=== PATIENT | female | born 1945 | race Caucasian/White ===

== ENCOUNTER → 2016-09-20 | Outpatient (CLI) | payer OTHER ==
[2016-09-20 10:20] LABS: BASO # 0.2 K/mm3 (0.0-0.2); BASO % 1.3 % (0.0-1.0); EOS # 0.2 K/mm3 (0.0-0.50); EOS % 1.4 % (0.0-3.0); LARGE UNSTAINED CELL # 0.2 K/mm3 (0.0-0.4); LARGE UNSTAINED CELL % 1.4 % (0.0-4.0); LYMPH # 2.3 K/mm3 (1.5-4.5); LYMPH % 13.3 % (24.0-44.0); MEAN CORPUSCULAR HEMOGLOBIN 30.3 pg (27.0-33.0); MEAN CORPUSCULAR HGB CONC 32.8 g/dl (32.0-36.5); MEAN CORPUSCULAR VOLUME 92.3 fl (80.0-96.0); MONO # 0.7 K/mm3 (0.0-0.8); MONO % 4.6 % (0.0-5.0); NEUTROPHILS # 12.5 K/mm3 (1.8-7.7); PLATELET COUNT, AUTOMATED 111 k/mm3 (150-450); RED CELL DISTRIBUTION WIDTH 13.5 % (11.5-14.5)
[2016-09-20 10:38] LABS: ALBUMIN 3.3 GM/DL (3.2-5.2); ALBUMIN/GLOBULIN RATIO 1.06 (1.00-1.93); ALKALINE PHOSPHATASE 101 U/L (45-117); ALT/SGPT 22 U/L (12-78); ANION GAP 8 MEQ/L (8-16); AST/SGOT 11 U/L (15-37); BILIRUBIN,TOTAL 0.5 MG/DL (0.2-1.0); BLOOD UREA NITROGEN 12 MG/DL (7-18); CALCIUM LEVEL 8.5 MG/DL (8.8-10.2); CARBON DIOXIDE LEVEL 28 MEQ/L (21-32); CHLORIDE LEVEL 107 MEQ/L (98-107); CREATININE FOR GFR 0.79 MG/DL (0.55-1.02); GLOMERULAR FILTRATION RATE > 60.0 (>45); GLUCOSE, FASTING 142 MG/DL (80-110); POTASSIUM SERUM 4.2 MEQ/L (3.5-5.1); SODIUM LEVEL 143 MEQ/L (136-145); TOTAL PROTEIN 6.4 GM/DL (6.4-8.2)
[2016-09-20 10:48] LABS: VITAMIN B12 LEVEL 1490 PG/ML (247-911)
[2016-09-21 10:21] LABS: PRETREATED FOLATE FOR RBCFOL 17.5 NG/ML
== END ==
LOC: M WUC 09:05
PROVIDERS: ATTEND Family Medicine
DX: E53.8 Deficiency of other specified B group vitamins (principal); E11.9 Type 2 diabetes mellitus without complications

== ENCOUNTER → 2017-02-02 | Outpatient (CLI) | payer OTHER ==
[2017-02-02 09:31] LABS: MEAN CORPUSCULAR HGB CONC 33.6 g/dl (32.0-36.5); MEAN CORPUSCULAR VOLUME 92.2 fl (80.0-96.0); RED CELL DISTRIBUTION WIDTH 13.3 % (11.5-14.5); WHITE BLOOD COUNT 13.6 K/mm3 (4.0-10.0)
[2017-02-02 09:40] LABS: CHOLESTEROL LEVEL 163 MG/DL (<200); TOTAL PROTEIN 6.5 GM/DL (6.4-8.2); TRIGLYCERIDES LEVEL 124 MG/DL (<150)
[2017-02-03 13:47] LABS: ALBUMIN 3.61 GM/DL (3.29-5.55); ALBUMIN % 55.5 % (55.8-66.1)
== END ==
LOC: M WUC 08:07
PROVIDERS: ATTEND Family Medicine
DX: D72.829 Elevated white blood cell count, unspecified (principal); E11.9 Type 2 diabetes mellitus without complications; E55.9 Vitamin D deficiency, unspecified

== ENCOUNTER → 2017-04-04 | Outpatient (CLI) | payer OTHER ==
[~2017-04-04] VITALS: Ht 154.9 cm; Wt 79.4 kg
[~2017-04-04] MED LIST: ADV500INH INH; ALBU17IN INH; ASPI1TAB PO; CALC600T31 PO; CITA20TA4 PO; DRIS50002 PO; JANU100T PO; LIDOCAINE 2% INJ 100 MG/5 ML SDV (FOR ANES.) As Ordered ONE; LISI10TA4 PO; METF10004 PO; MONT10TA2 PO; NS 1,000 ML IV ONE; OMEP40CA2 PO; PRAV40TA2 PO; PROPOFOL 200 MG/20 ML VIAL As Ordered ONE; VITA100072 PO
--- NOTE | 2017-04-04 07:56 | ROOR ---
Patient Name: Maria Esther Harris Procedure Date: 04/04/2017 7:27 AM Date of : 1945 Age: 71 [facility] Gender: Female Note Status: Finalized Procedure: Colonoscopy Indications: Screening patient at increased risk: Family history of 1st-degree relative with colorectal cancer at age 60 years (or older), Incidental - Positive fecal immunochemical test Providers: Mikey HUNTER MD Referring MD: Tristian Byrd MD Requesting Provider: Medicines: Monitored Anesthesia Care Complications: No immediate complications. Procedure: Pre-Anesthesia Assessment: - The heart rate, respiratory rate, oxygen saturations, blood pressure, adequacy of pulmonary ventilation, and response to care were monitored throughout the procedure. The Colonoscope was introduced through the anus and advanced to the cecum, identified by appendiceal orifice and ileocecal valve. The colonoscopy was performed without difficulty. The patient tolerated the procedure well. The quality of the bowel preparation was good. Findings: The perianal exam findings include skin tags. Five sessile polyps were found in the sigmoid colon. The polyps were 3 to 4 mm in size. These polyps were removed with a cold snare. Resection and retrieval were complete. A 7 mm polyp was found in the hepatic flexure. The polyp was sessile. The polyp was removed with a cold snare. Resection and retrieval were complete. The exam was otherwise without abnormality on direct and retroflexion views. Impression: - Perianal skin tags found on perianal exam. - Five 3 to 4 mm polyps in the sigmoid colon, removed with a cold snare. Resected and retrieved. - One 7 mm polyp at the hepatic flexure, removed with a cold snare. Resected and retrieved. - The examination was otherwise normal on direct and retroflexion views. Recommendation: - Repeat colonoscopy in 5 years for surveillance. Mikey Hunter MD Mikey HUNTER MD 04/04/2017 7:56:27 AM This report has been signed electronically. Number of Addenda: 0 Note Initiated On: 04/04/2017 7:27 AM Estimated Blood Loss: Estimated blood loss: none.
[2017-04-04 08:15] VITALS: BP 117/56
== END | disposition home or self-care (01) ==
LOC: M OPP 06:59
PROVIDERS: ATTEND Internal Medicine Gastroenterology
DX: R19.5 Other fecal abnormalities (principal); D12.5 Benign neoplasm of sigmoid colon; D12.3 Benign neoplasm of transverse colon; K64.4 Residual hemorrhoidal skin tags; I10 Essential (primary) hypertension; E78.5 Hyperlipidemia, unspecified; E11.9 Type 2 diabetes mellitus without complications; R12 Heartburn; R06.02 Shortness of breath; M19.90 Unspecified osteoarthritis, unspecified site; K21.9 Gastro-esophageal reflux disease without esophagitis; F32.9 Major depressive disorder, single episode, unspecified; J45.909 Unspecified asthma, uncomplicated; J44.9 Chronic obstructive pulmonary disease, unspecified; R06.83 Snoring; F17.210 Nicotine dependence, cigarettes, uncomplicated; Z79.82 Long term (current) use of aspirin; Z79.899 Other long term (current) drug therapy; Z80.0 Family history of malignant neoplasm of digestive organs

== ENCOUNTER → 2017-05-30 | Outpatient (CLI) | payer OTHER ==
[~2017-05-30] MED LIST changes: -LIDOCAINE 2% INJ 100 MG/5 ML SDV (FOR ANES.) As Ordered ONE; -NS 1,000 ML IV ONE; -PROPOFOL 200 MG/20 ML VIAL As Ordered ONE
--- NOTE | 2017-05-30 11:24 | REPMRS ---
Patient History The patient states she has not had a clinical breast exam in over a year. Patient is postmenopausal. Family history of colorectal cancer in father at age 50 or over and breast cancer in sister at age 71. Digital Woman Screen Mammo: May 30, 2017 - Exam #: [id number] Bilateral CC and MLO view(s) were taken. Technologist: Yue Lopez, Technologist Prior study comparison: June 16, 2016, digital woman screen mammo performed at [facility]. December 04, 2014, digital woman screen mammo performed at [facility]. November 26, 2013, digital woman screen mammo performed at [facility]. FINDINGS: There are scattered fibroglandular densities. There has been no change in the appearance of the mammogram from the prior studies. There is a mild amount of scattered fibroglandular density which is fairly symmetric. There is no interval development of dominant mass, architectural distortion, or clustered microcalcification suggestive of malignancy. ASSESSMENT: BI-RADS/ACR category 1 mammogram. Negative. Recommendation Routine screening mammogram in 1 year (for women over age 40). This mammogram was interpreted with the aid of an FDA-approved computer-aided dectection system. Electronically Signed By: Stevie Roblero MD 05/30/17 [id number]
== END ==
LOC: M WHC 09:50
PROVIDERS: ATTEND Family Medicine
DX: Z12.31 Encounter for screening mammogram for malignant neoplasm of breast (principal); Z78.0 Asymptomatic menopausal state

== ENCOUNTER → 2017-06-15 | Outpatient (CLI) | payer OTHER ==
[2017-06-15 10:01] LABS: MEAN CORPUSCULAR HEMOGLOBIN 29.8 pg (27.0-33.0); MEAN CORPUSCULAR HGB CONC 34.1 g/dl (32.0-36.5); MEAN CORPUSCULAR VOLUME 87.3 fl (80.0-96.0); RED CELL DISTRIBUTION WIDTH 13.3 % (11.5-14.5); WHITE BLOOD COUNT 15.2 10^3/uL (4.0-10.0)
[2017-06-15 10:19] LABS: BASOPHILS 1 % (0-4); EOSINOPHILS 1 % (0-5)
[2017-06-15 10:26] LABS: ALBUMIN 3.4 GM/DL (3.2-5.2); ALKALINE PHOSPHATASE 101 U/L (45-117); ALT/SGPT 20 U/L (12-78); ANION GAP 4 MEQ/L (8-16); AST/SGOT 14 U/L (15-37); BILIRUBIN,TOTAL 0.4 MG/DL (0.2-1.0); BLOOD UREA NITROGEN 14 MG/DL (7-18); CALCIUM LEVEL 9.2 MG/DL (8.8-10.2); CARBON DIOXIDE LEVEL 31 MEQ/L (21-32); CHLORIDE LEVEL 105 MEQ/L (98-107); CREATININE FOR GFR 0.68 MG/DL (0.55-1.02); GLOMERULAR FILTRATION RATE > 60.0 (>39); GLUCOSE, FASTING 120 MG/DL (83-110); POTASSIUM SERUM 4.3 MEQ/L (3.5-5.1); SODIUM LEVEL 140 MEQ/L (136-145); TOTAL PROTEIN 6.5 GM/DL (6.4-8.2)
== END ==
LOC: M WUC 08:39
PROVIDERS: ATTEND Family Medicine
DX: D72.829 Elevated white blood cell count, unspecified (principal); Z80.0 Family history of malignant neoplasm of digestive organs

== ENCOUNTER 2017-09-28 12:33 | Emergency (ER) | payer OTHER ==
[2017-09-28] MEDS: IPRATROPIUM 0.5MG/ALBUTEROL 2.5MG INH SOL UD 3ML (DUONEB)(J7620) NEB (13:29)
== END 2017-09-28 16:13 | disposition home or self-care (01) ==
LOC: M ED 12:33
DX: C34.90 Malignant neoplasm of unspecified part of unspecified bronchus or lung (principal); R06.2 Wheezing; E11.9 Type 2 diabetes mellitus without complications; I10 Essential (primary) hypertension; J44.9 Chronic obstructive pulmonary disease, unspecified; F17.200 Nicotine dependence, unspecified, uncomplicated; Z79.82 Long term (current) use of aspirin; Z79.899 Other long term (current) drug therapy; Z79.84 Long term (current) use of oral hypoglycemic drugs
CPT/HCPCS: 71046

== ENCOUNTER → 2017-10-07 | Outpatient (CLI) | payer OTHER | LOC: M WUC 09:56 | DX: R91.8 Other nonspecific abnormal finding of lung field (principal) | CPT/HCPCS: 71046 ==

== ENCOUNTER → 2017-10-18 | Outpatient (CLI) | payer OTHER ==
[2017-10-18 13:50] LABS: BASO # 0.1 10^3/uL (0.0-0.2); BASO % 0.4 % (0.0-1.0); EOS % 0.2 % (0.0-3.0); HEMATOCRIT 45.3 % (36.0-47.0); HEMOGLOBIN 15.2 g/dl (12.0-16.0); IMMATURE GRANULOCYTE # 0.4 10^3/uL (0-0); IMMATURE GRANULOCYTE % 1.9 % (0-0); LYMPH # 2.4 10^3/uL (1.5-4.5); LYMPH % 12.1 % (24.0-44.0); MEAN CORPUSCULAR HEMOGLOBIN 29.3 pg (27.0-33.0); MEAN CORPUSCULAR HGB CONC 33.6 g/dl (32.0-36.5); MEAN CORPUSCULAR VOLUME 87.3 fl (80.0-96.0); MONO # 0.9 10^3/uL (0.0-0.8); MONO % 4.3 % (0.0-5.0); NEUTROPHILS # 15.9 10^3/uL (1.8-7.7); NEUTROPHILS % 81.1 % (36.0-66.0); PLATELET COUNT, AUTOMATED 130 10^3/uL (150-450); RED BLOOD COUNT 5.19 10^6/uL (4.00-5.40); RED CELL DISTRIBUTION WIDTH 13.9 % (11.5-14.5); WHITE BLOOD COUNT 19.6 10^3/uL (4.0-10.0)
[2017-10-18 13:58] LABS: ESTIMATED AVERAGE GLUCOSE 160 MG/DL (60-110); HEMOGLOBIN A1c 7.2 %
[2017-10-18 13:59] LABS: TOTAL 25(OH) VITAMIN D 52.6 NG/ML (30.0-100.0)
[2017-10-18 14:00] LABS: PTH INTACT 42.6 PG/ML (14.0-72.0); VITAMIN B12 LEVEL 1569 PG/ML (247-911)
[2017-10-18 14:05] LABS: ALBUMIN 3.4 GM/DL (3.2-5.2); ALBUMIN/GLOBULIN RATIO 1.21 (1.00-1.93); ALKALINE PHOSPHATASE 79 U/L (45-117); ALT/SGPT 24 U/L (12-78); ANION GAP 7 MEQ/L (8-16); AST/SGOT 9 U/L (7-37); BILIRUBIN,TOTAL 0.4 MG/DL (0.2-1.0); BLOOD UREA NITROGEN 22 MG/DL (7-18); CALCIUM LEVEL 8.7 MG/DL (8.8-10.2); CARBON DIOXIDE LEVEL 30 MEQ/L (21-32); CHLORIDE LEVEL 102 MEQ/L (98-107); CHOLESTEROL LEVEL 176 MG/DL (<200); CHOLESTEROL RISK RATIO 2.885 (<5); CREATININE FOR GFR 0.87 MG/DL (0.55-1.30); FREE T4 0.79 NG/DL (0.76-1.46); GLOMERULAR FILTRATION RATE > 60.0 (>39); GLUCOSE, FASTING 147 MG/DL (70-100); HDL CHOLESTEROL 61 MG/DL (>40); LDL CHOLESTEROL 81.6 MG/DL (<100); NON-HDL-C 115 MG/DL; POTASSIUM SERUM 4.8 MEQ/L (3.5-5.1); SODIUM LEVEL 139 MEQ/L (136-145); THYROID STIMULATING HORMONE 0.585 uIU/ML (0.358-3.740); TOTAL PROTEIN 6.2 GM/DL (6.4-8.2); TRIGLYCERIDES LEVEL 167 MG/DL (<150)
== END ==
LOC: M WUC 08:39
DX: E53.8 Deficiency of other specified B group vitamins (principal); E55.9 Vitamin D deficiency, unspecified; E11.9 Type 2 diabetes mellitus without complications; E78.5 Hyperlipidemia, unspecified
CPT/HCPCS: 84443

== ENCOUNTER → 2017-12-02 | Outpatient (CLI) | payer OTHER ==
[2017-12-02 12:41] LABS: ALBUMIN 3.2 GM/DL (3.2-5.2); ALBUMIN/GLOBULIN RATIO 1.07 (1.00-1.93); ALKALINE PHOSPHATASE 107 U/L (45-117); ALT/SGPT 16 U/L (12-78); ANION GAP 10 MEQ/L (8-16); AST/SGOT 10 U/L (7-37); BILIRUBIN,TOTAL 0.3 MG/DL (0.2-1.0); BLOOD UREA NITROGEN 15 MG/DL (7-18); CALCIUM LEVEL 8.6 MG/DL (8.8-10.2); CARBON DIOXIDE LEVEL 25 MEQ/L (21-32); CHLORIDE LEVEL 106 MEQ/L (98-107); CREATININE FOR GFR 0.67 MG/DL (0.55-1.30); GLOMERULAR FILTRATION RATE > 60.0 (>39); GLUCOSE, FASTING 132 MG/DL (70-100); POTASSIUM SERUM 4.1 MEQ/L (3.5-5.1); SODIUM LEVEL 141 MEQ/L (136-145); TOTAL PROTEIN 6.2 GM/DL (6.4-8.2)
== END ==
LOC: M WUC 08:58
DX: I10 Essential (primary) hypertension (principal)
CPT/HCPCS: 80053

== ENCOUNTER → 2017-12-05 | Outpatient (CLI) | payer OTHER ==
[~2017-12-05] MED LIST changes: -ADV500INH INH; -ALBU17IN INH; -ASPI1TAB PO; -CALC600T31 PO; -CITA20TA4 PO; -DRIS50002 PO; +ISOVUE-370 76% 100ML VIAL (Q9967) As Ordered; -JANU100T PO; -LISI10TA4 PO; -METF10004 PO; -MONT10TA2 PO; -OMEP40CA2 PO; -PRAV40TA2 PO; -VITA100072 PO
== END ==
LOC: M RAD 15:36
DX: R91.8 Other nonspecific abnormal finding of lung field (principal)
CPT/HCPCS: Q9967

== ENCOUNTER → 2017-12-08 | Outpatient (REF) | payer OTHER ==
[2017-12-08 12:00] LABS: BASO # 0.1 10^3/uL (0.0-0.2); BASO % 0.9 % (0.0-1.0); EOS # 0.2 10^3/uL (0.0-0.50); EOS % 1.3 % (0.0-3.0); HEMATOCRIT 42.7 % (36.0-47.0); HEMOGLOBIN 14.1 g/dl (12.0-16.0); IMMATURE GRANULOCYTE % 0.7 % (0-3.0); LYMPH # 2.3 10^3/uL (1.5-4.5); LYMPH % 14.9 % (24.0-44.0); MEAN CORPUSCULAR HEMOGLOBIN 29.3 pg (27.0-33.0); MEAN CORPUSCULAR VOLUME 88.6 fl (80.0-96.0); MONO # 0.8 10^3/uL (0.0-0.8); MONO % 5.1 % (0.0-5.0); NEUTROPHILS # 11.8 10^3/uL (1.8-7.7); NEUTROPHILS % 77.1 % (36.0-66.0); PLATELET COUNT, AUTOMATED 239 10^3/uL (150-450); RED BLOOD COUNT 4.82 10^6/uL (4.00-5.40); RED CELL DISTRIBUTION WIDTH 13.9 % (11.5-14.5); WHITE BLOOD COUNT 15.3 10^3/uL (4.0-10.0)
[2017-12-08 12:17] LABS: INR 1.11; PROTHROMBIN TIME 14.4 SECONDS (12.4-14.5)
[2017-12-08 12:18] LABS: PARTIAL THROMBOPLASTIN TIME 30.5 SECONDS (26.8-37.9)
== END ==
LOC: M SFHCPLAZ 08:50
DX: R91.8 Other nonspecific abnormal finding of lung field (principal); D69.6 Thrombocytopenia, unspecified
CPT/HCPCS: 85610

== ENCOUNTER → 2017-12-15 | Outpatient (CLI) | payer OTHER ==
[~2017-12-15] MED LIST changes: +ACETAMINOPHEN 325 MG TAB As Ordered; -ISOVUE-370 76% 100ML VIAL (Q9967) As Ordered; +LIDOCAINE 1% MDV 20ML VIAL As Ordered
== END ==
LOC: M RADPRO 12:26
DX: R91.8 Other nonspecific abnormal finding of lung field (principal); C34.90 Malignant neoplasm of unspecified part of unspecified bronchus or lung; Z79.82 Long term (current) use of aspirin; Z79.899 Other long term (current) drug therapy; Z79.84 Long term (current) use of oral hypoglycemic drugs
CPT/HCPCS: 32405

== ENCOUNTER → 2018-01-03 | Outpatient (CLI) | payer OTHER ==
[~2018-01-03] MED LIST changes: -ACETAMINOPHEN 325 MG TAB As Ordered
== END ==
LOC: M RADPRO 10:51
DX: C79.89 Secondary malignant neoplasm of other specified sites (principal); E11.9 Type 2 diabetes mellitus without complications; I10 Essential (primary) hypertension; F32.9 Major depressive disorder, single episode, unspecified; E78.00 Pure hypercholesterolemia, unspecified; K21.9 Gastro-esophageal reflux disease without esophagitis; Z79.82 Long term (current) use of aspirin; Z79.84 Long term (current) use of oral hypoglycemic drugs; Z79.899 Other long term (current) drug therapy
CPT/HCPCS: 49180

== ENCOUNTER → 2018-01-09 | Outpatient (CLI) | payer OTHER | LOC: M WUC 10:21 | DX: R91.8 Other nonspecific abnormal finding of lung field (principal); R59.0 Localized enlarged lymph nodes; J01.11 Acute recurrent frontal sinusitis | CPT/HCPCS: 71046; G0463 ==

== ENCOUNTER → 2018-01-20 | Outpatient (REF) | payer OTHER ==
[2018-01-20 14:21] LABS: INR 1.21; PROTHROMBIN TIME 15.6 SECONDS (12.4-14.5)
[2018-01-20 14:22] LABS: PARTIAL THROMBOPLASTIN TIME 33.7 SECONDS (26.8-37.9)
[2018-01-20 14:31] LABS: CARCINOEMBRYONIC ANTIGEN 7.2 NG/ML (<2.5)
[2018-01-20 15:00] LABS: CA 125 161.1 U/ML (<30.2)
== END ==
LOC: M LAB REF 13:35
DX: C56.9 Malignant neoplasm of unspecified ovary (principal); C78.00 Secondary malignant neoplasm of unspecified lung; C79.89 Secondary malignant neoplasm of other specified sites; C78.1 Secondary malignant neoplasm of mediastinum
CPT/HCPCS: 82378

== ENCOUNTER → 2018-01-24 | Outpatient (CLI) | payer OTHER | LOC: M PLARAD 14:17 | DX: C79.31 Secondary malignant neoplasm of brain (principal) | CPT/HCPCS: 78815 ==

== ENCOUNTER → 2018-01-30 | Outpatient (CLI) | payer OTHER ==
[~2018-01-30] MED LIST changes: -LIDOCAINE 1% MDV 20ML VIAL As Ordered; +PROHANCE 279.3MG/ML 15ML VIAL (A9576) As Ordered
== END ==
LOC: M RAD 08:42
DX: C80.1 Malignant (primary) neoplasm, unspecified (principal); G31.9 Degenerative disease of nervous system, unspecified; I67.81 Acute cerebrovascular insufficiency
CPT/HCPCS: A9576

== ENCOUNTER → 2018-02-15 | Outpatient (REF) | payer OTHER ==
[2018-02-16 11:16] LABS: THYROID STIMULATING HORMONE 0.744 uIU/ML (0.358-3.740)
== END ==
LOC: M LAB REF 13:00
DX: Z79.899 Other long term (current) drug therapy (principal); C80.1 Malignant (primary) neoplasm, unspecified; C78.1 Secondary malignant neoplasm of mediastinum; C78.00 Secondary malignant neoplasm of unspecified lung; C49.4 Malignant neoplasm of connective and soft tissue of abdomen
CPT/HCPCS: 84443

== ENCOUNTER → 2018-02-23 | Outpatient (CLI) | payer OTHER ==
[~2018-02-23] MED LIST changes: +GASTROGRAFIN SOLUTION 30ML (Q9963) As Ordered; +ISOVUE-370 76% 100ML VIAL (Q9967) As Ordered; -PROHANCE 279.3MG/ML 15ML VIAL (A9576) As Ordered
== END ==
LOC: M RAD 12:57
DX: R10.32 Left lower quadrant pain (principal); C34.90 Malignant neoplasm of unspecified part of unspecified bronchus or lung
CPT/HCPCS: Q9963

== ENCOUNTER 2018-03-02 10:33 | Day surgery (SDC) | payer OTHER ==
[2018-03-02] MEDS ORDERED: NS 1,000 ML IV (12:30)
[2018-03-02] MEDS ORDERED: PROPOFOL 200 MG/20 ML VIAL As Ordered ×2 (12:47→12:55)
== END 2018-03-02 14:04 | disposition home or self-care (01) ==
LOC: M OPP 10:33
DX: R93.3 Abnormal findings on diagnostic imaging of other parts of digestive tract (principal); K57.30 Diverticulosis of large intestine without perforation or abscess without bleeding; K56.690 Other partial intestinal obstruction; R07.89 Other chest pain; R06.02 Shortness of breath; I10 Essential (primary) hypertension; E78.5 Hyperlipidemia, unspecified; R19.07 Generalized intra-abdominal and pelvic swelling, mass and lump; C34.90 Malignant neoplasm of unspecified part of unspecified bronchus or lung; Z92.21 Personal history of antineoplastic chemotherapy; E11.9 Type 2 diabetes mellitus without complications; K21.9 Gastro-esophageal reflux disease without esophagitis; M19.90 Unspecified osteoarthritis, unspecified site; F32.9 Major depressive disorder, single episode, unspecified; J45.909 Unspecified asthma, uncomplicated; J44.9 Chronic obstructive pulmonary disease, unspecified; R06.83 Snoring; F17.210 Nicotine dependence, cigarettes, uncomplicated; Z79.82 Long term (current) use of aspirin; Z79.899 Other long term (current) drug therapy; Z79.84 Long term (current) use of oral hypoglycemic drugs; Z80.0 Family history of malignant neoplasm of digestive organs
CPT/HCPCS: 45380

== ENCOUNTER → 2018-03-09 | Outpatient (CLI) | payer OTHER ==
[~2018-03-09] MED LIST changes: -GASTROGRAFIN SOLUTION 30ML (Q9963) As Ordered
== END ==
LOC: M RAD 16:01
DX: C80.1 Malignant (primary) neoplasm, unspecified (principal); C78.01 Secondary malignant neoplasm of right lung
CPT/HCPCS: Q9967

== ENCOUNTER 2018-03-13 09:32 | Inpatient (IN) | payer OTHER ==
[2018-03-13 10:16] LABS: BASO # 0.1 10^3/uL (0.0-0.2); BASO % 0.6 % (0.0-1.0); EOS # 0.1 10^3/uL (0.0-0.50); HEMATOCRIT 38.3 % (36.0-47.0); HEMOGLOBIN 12.9 g/dl (12.0-15.5); IMMATURE GRANULOCYTE % 0.4 % (0-3.0); LYMPH # 1.9 10^3/uL (1.5-4.5); LYMPH % 15.1 % (24.0-44.0); MEAN CORPUSCULAR HEMOGLOBIN 26.7 pg (27.0-33.0); MEAN CORPUSCULAR HGB CONC 33.7 g/dl (32.0-36.5); MEAN CORPUSCULAR VOLUME 79.1 fl (80.0-96.0); MONO # 0.8 10^3/uL (0.0-0.8); MONO % 6.4 % (0.0-5.0); NEUTROPHILS # 9.9 10^3/uL (1.8-7.7); NEUTROPHILS % 76.5 % (36.0-66.0); PLATELET COUNT, AUTOMATED 277 10^3/uL (150-450); RED BLOOD COUNT 4.84 10^6/uL (4.00-5.40); RED CELL DISTRIBUTION WIDTH 14.3 % (11.5-14.5); WHITE BLOOD COUNT 12.9 10^3/uL (4.0-10.0)
[2018-03-13 10:27] LABS: PROTHROMBIN TIME 15.4 SECONDS (12.4-14.5)
[2018-03-13 10:51] LABS: ALBUMIN 2.5 GM/DL (3.2-5.2); ALBUMIN/GLOBULIN RATIO 0.63 (1.00-1.93); ALKALINE PHOSPHATASE 93 U/L (45-117); ALT/SGPT 10 U/L (12-78); ANION GAP 9 MEQ/L (8-16); AST/SGOT 8 U/L (7-37); BILIRUBIN,DIRECT 0.1 MG/DL (0.0-0.2); BILIRUBIN,TOTAL 0.5 MG/DL (0.2-1.0); BLOOD UREA NITROGEN 9 MG/DL (7-18); CALCIUM LEVEL 8.3 MG/DL (8.8-10.2); CARBON DIOXIDE LEVEL 26 MEQ/L (21-32); CHLORIDE LEVEL 106 MEQ/L (98-107); CPK CREATINE PHOSPHOKINASE 14 U/L (26-192); CREATININE FOR GFR 0.64 MG/DL (0.55-1.30); GLOMERULAR FILTRATION RATE > 60.0 (>39); GLUCOSE, FASTING 150 MG/DL (70-100); LIPASE 116 U/L (73-393); POTASSIUM SERUM 3.7 MEQ/L (3.5-5.1); SODIUM LEVEL 141 MEQ/L (136-145); TOTAL PROTEIN 6.5 GM/DL (6.4-8.2); TROPONIN I < 0.02 NG/ML (< 0.10)
[2018-03-13 10:52] LABS: CK-MB VALUE MASS < 1.0 NG/ML (<3.6); MB/CK RELATIVE INDEX 7.14 (< OR =4)
[2018-03-13] MEDS: ASPIRIN 81 MG CHEW TABLET PO (10:55)
[2018-03-13] MEDS ORDERED: ISOVUE-370 76% 100ML VIAL (Q9967) As Ordered (11:34)
[2018-03-13] MEDS ORDERED: ENOXAPARIN 100MG/1ML SYRINGE (J1650) SC (16:15)
[2018-03-13] MEDS ORDERED: DOCUSATE SODIUM 100 MG CAP PO (16:30)
[2018-03-13] MEDS ORDERED: SENOKOT S TAB PO (16:30)
[2018-03-13] MEDS ORDERED: PERCOCET 5MG/325MG TAB PO (17:15)
[2018-03-13] MEDS ORDERED: ONDANSETRON 4MG/2ML VIAL (J2405) IV (17:15)
[2018-03-13] MEDS ORDERED: BISACODYL 10 MG SUPP PR (17:15)
[2018-03-13] MEDS ORDERED: DEXTROSE 50% 50 ML SYRINGE IV (17:15)
[2018-03-13] MEDS ORDERED: MORPHINE 4 MG/ML 1ML VIAL/SYRINGE (J2270) IV (17:15)
[2018-03-13] MEDS ORDERED: ACETAMINOPHEN 500 MG TAB PO (17:15)
[2018-03-13] MEDS ORDERED: GLUCOSE 4 GM CHEW TABLET PO (17:15)
[2018-03-13] MEDS ORDERED: GLUCAGON FOR INJ 1 MG VIAL (J1610) SC (17:15)
[2018-03-13] MEDS ORDERED: IPRATROPIUM 0.5MG/ALBUTEROL 2.5MG INH SOL UD 3ML (DUONEB)(J7620) NEB (17:15)
[2018-03-13] MEDS ORDERED: BISACODYL 5 MG TAB PO (17:15)
[2018-03-13] MEDS: HumaLOG INSULIN (NovoLOG) PER UNIT SC ×2 (17:30→20:18)
[2018-03-13 20:15] LABS: BEDSIDE GLUCOSE 189 MG/DL (83-110)
[2018-03-13] MEDS: OMEPRAZOLE 20 MG CAP PO (20:41)
[2018-03-13] MEDS: CitaloPRAM (CeleXA) 10 MG TABLET PO (20:42)
[2018-03-13] MEDS: CYANOCOBALAMIN 500 MCG TAB PO (20:42)
[2018-03-13] MEDS: MONTELUKAST 10 MG TAB PO (20:42)
[2018-03-13] MEDS: PRAVASTATIN 20 MG TAB PO (20:42)
[2018-03-13] MEDS: LISINOPRIL 10 MG TAB PO (20:43)
[2018-03-13] MEDS: ENOXAPARIN 80 MG/0.8 ML SYRINGE (J1650) SC (20:44)
[2018-03-13] MEDS: ADVAIR HFA 230/21MCG INHALER INH (21:00)
[2018-03-14 06:31] LABS: BEDSIDE GLUCOSE 127 MG/DL (83-110)
[2018-03-14] MEDS: ENOXAPARIN 80 MG/0.8 ML SYRINGE (J1650) SC (08:16)
[2018-03-14] MEDS: HumaLOG INSULIN (NovoLOG) PER UNIT SC (08:17)
[2018-03-14 08:32] LABS: HEMATOCRIT 38.8 % (36.0-47.0); HEMOGLOBIN 12.7 g/dl (12.0-15.5); MEAN CORPUSCULAR HEMOGLOBIN 26.3 pg (27.0-33.0); MEAN CORPUSCULAR HGB CONC 32.7 g/dl (32.0-36.5); MEAN CORPUSCULAR VOLUME 80.3 fl (80.0-96.0); PLATELET COUNT, AUTOMATED 280 10^3/uL (150-450); RED BLOOD COUNT 4.83 10^6/uL (4.00-5.40); RED CELL DISTRIBUTION WIDTH 14.5 % (11.5-14.5); WHITE BLOOD COUNT 12.8 10^3/uL (4.0-10.0)
[2018-03-14] MEDS ORDERED: PANTOPRAZOLE 40MG TAB (PROTONIX) PO (09:00)
[2018-03-14] MEDS ORDERED: ASPIRIN 81 MG ENTERIC TAB PO (21:00)
== END 2018-03-14 11:45 | disposition home or self-care (01) | DRG 176 ==
LOC: M ED 09:32 → M ED INP 17:01 → M MSPAV 20:00
DX: I26.99 Other pulmonary embolism without acute cor pulmonale (principal); C78.00 Secondary malignant neoplasm of unspecified lung; I10 Essential (primary) hypertension; E78.5 Hyperlipidemia, unspecified; E11.9 Type 2 diabetes mellitus without complications; E55.9 Vitamin D deficiency, unspecified; F32.9 Major depressive disorder, single episode, unspecified; E53.8 Deficiency of other specified B group vitamins; Z79.899 Other long term (current) drug therapy; Z79.82 Long term (current) use of aspirin; J44.9 Chronic obstructive pulmonary disease, unspecified; E66.9 Obesity, unspecified; K21.9 Gastro-esophageal reflux disease without esophagitis; D69.6 Thrombocytopenia, unspecified; J30.9 Allergic rhinitis, unspecified

== ENCOUNTER → 2018-03-16 | Outpatient (REF) | payer OTHER ==
[2018-03-17 08:36] LABS: CARCINOEMBRYONIC ANTIGEN 4.9 NG/ML (<2.5)
[2018-03-17 09:02] LABS: CA 125 276.4 U/ML (<30.2)
== END ==
LOC: M LAB REF 10:37
DX: C80.1 Malignant (primary) neoplasm, unspecified (principal); C78.1 Secondary malignant neoplasm of mediastinum; C78.00 Secondary malignant neoplasm of unspecified lung; C49.4 Malignant neoplasm of connective and soft tissue of abdomen; C79.89 Secondary malignant neoplasm of other specified sites
CPT/HCPCS: 82378

== ENCOUNTER → 2018-04-04 | Outpatient (REF) | payer OTHER ==
[2018-04-04 14:25] LABS: URIC ACID 4.6 MG/DL (2.6-6.0)
== END ==
LOC: M LAB REF 13:51
DX: C80.1 Malignant (primary) neoplasm, unspecified (principal); C78.1 Secondary malignant neoplasm of mediastinum; C78.00 Secondary malignant neoplasm of unspecified lung; C49.4 Malignant neoplasm of connective and soft tissue of abdomen; C79.89 Secondary malignant neoplasm of other specified sites

== ENCOUNTER → 2018-04-04 | Outpatient (CLI) | payer OTHER | LOC: M RAD 10:44 | DX: C56.9 Malignant neoplasm of unspecified ovary (principal); C80.1 Malignant (primary) neoplasm, unspecified; C78.1 Secondary malignant neoplasm of mediastinum; C78.00 Secondary malignant neoplasm of unspecified lung; C49.4 Malignant neoplasm of connective and soft tissue of abdomen; C79.89 Secondary malignant neoplasm of other specified sites | CPT/HCPCS: 73590 ==

== ENCOUNTER → 2018-04-26 | Outpatient (CLI) | payer OTHER ==
[~2018-04-26] MED LIST changes: +GASTROGRAFIN SOLUTION 30ML (Q9963) As Ordered
== END ==
LOC: M RAD 08:02
DX: C80.1 Malignant (primary) neoplasm, unspecified (principal); K43.9 Ventral hernia without obstruction or gangrene; K76.89 Other specified diseases of liver; K44.9 Diaphragmatic hernia without obstruction or gangrene; N28.1 Cyst of kidney, acquired; I70.0 Atherosclerosis of aorta
CPT/HCPCS: Q9963

== ENCOUNTER → 2018-05-04 | Outpatient (REF) | payer OTHER ==
[2018-05-05 10:46] LABS: CA 125 32.1 U/ML (<30.2)
== END ==
LOC: M LAB REF 13:22
DX: C80.1 Malignant (primary) neoplasm, unspecified (principal); C78.1 Secondary malignant neoplasm of mediastinum; C78.00 Secondary malignant neoplasm of unspecified lung; C49.4 Malignant neoplasm of connective and soft tissue of abdomen; C79.89 Secondary malignant neoplasm of other specified sites
CPT/HCPCS: 86304

== ENCOUNTER → 2018-05-15 | Outpatient (CLI) | payer OTHER ==
[~2018-05-15] MED LIST changes: -GASTROGRAFIN SOLUTION 30ML (Q9963) As Ordered; -ISOVUE-370 76% 100ML VIAL (Q9967) As Ordered; +PROHANCE 279.3MG/ML 15ML VIAL (A9576) As Ordered
== END ==
LOC: M RAD 16:55
DX: M25.552 Pain in left hip (principal); C56.9 Malignant neoplasm of unspecified ovary; M76.62 Achilles tendinitis, left leg; M51.36 Other intervertebral disc degeneration, lumbar region; M48.061 Spinal stenosis, lumbar region without neurogenic claudication
CPT/HCPCS: A9576

== ENCOUNTER → 2018-06-23 | Outpatient (CLI) | payer OTHER ==
[~2018-06-23] MED LIST changes: +GASTROGRAFIN SOLUTION 30ML (Q9963) As Ordered; +ISOVUE-370 76% 100ML VIAL (Q9967) As Ordered; -PROHANCE 279.3MG/ML 15ML VIAL (A9576) As Ordered
== END ==
LOC: M RAD 13:33
DX: C56.9 Malignant neoplasm of unspecified ovary (principal); R91.8 Other nonspecific abnormal finding of lung field; K76.89 Other specified diseases of liver
CPT/HCPCS: Q9963

== ENCOUNTER → 2018-07-03 | Outpatient (CLI) | payer OTHER | LOC: M ONCR 13:50 | DX: C56.9 Malignant neoplasm of unspecified ovary (principal); F17.210 Nicotine dependence, cigarettes, uncomplicated; C78.01 Secondary malignant neoplasm of right lung | CPT/HCPCS: G0463 ==

== ENCOUNTER → 2018-07-05 | Outpatient (CLI) | payer OTHER | LOC: M CARPUL 10:55 | DX: C78.01 Secondary malignant neoplasm of right lung (principal) | CPT/HCPCS: 94060 ==

== ENCOUNTER → 2018-07-12 | Outpatient (CLI) | payer OTHER | LOC: M RAD 12:43 | DX: R93.5 Abnormal findings on diagnostic imaging of other abdominal regions, including retroperitoneum (principal) | CPT/HCPCS: 76856 ==

== ENCOUNTER → 2018-07-18 | Outpatient (CLI) | payer OTHER | LOC: M RAD 13:54 | DX: C34.11 Malignant neoplasm of upper lobe, right bronchus or lung (principal); J44.9 Chronic obstructive pulmonary disease, unspecified | CPT/HCPCS: 71046 ==

== ENCOUNTER 2018-07-26 10:51 | Outpatient (RCR) | payer OTHER | END 2018-08-18 | LOC: M ONCR 10:51 | DX: C34.11 Malignant neoplasm of upper lobe, right bronchus or lung (principal) | CPT/HCPCS: 77300 ==

== ENCOUNTER 2018-07-28 11:57 | Outpatient (CLI) | payer OTHER | END 2018-08-01 | LOC: M ONCR 11:57 | DX: C34.90 Malignant neoplasm of unspecified part of unspecified bronchus or lung (principal) | CPT/HCPCS: G0463 ==

== ENCOUNTER → 2018-08-17 | Outpatient (CLI) | payer OTHER | LOC: M ONCR 13:54 | DX: C56.9 Malignant neoplasm of unspecified ovary (principal) ==

== ENCOUNTER → 2018-08-31 | Outpatient (CLI) | payer OTHER | LOC: M RAD 13:54 | DX: C34.90 Malignant neoplasm of unspecified part of unspecified bronchus or lung (principal) | CPT/HCPCS: Q9963 ==

== ENCOUNTER → 2018-09-04 | Outpatient (REF) | payer OTHER ==
[~2018-09-04] MED LIST changes: +ADV500INH INH; +ALBU17IN INH; +ALBU17IN2 INH; +ASPI1TAB PO; +CALC600T31 PO; +CITA10TA5 PO; +CITA20TA4 PO; +COLA100C5 PO; +DRIS50003 PO; +GABA-1171 OR; -GASTROGRAFIN SOLUTION 30ML (Q9963) As Ordered; +INCR1INH INH; -ISOVUE-370 76% 100ML VIAL (Q9967) As Ordered; +JANU100T PO; +LEVO500T3; +LISI10TA4 PO; +LOVE0.6I2 SC; +METF10004 PO; +MONT10TA2 PO; +NYST50SS SS; +OMEP40CA2 PO; +ONDA8TAB7 PO; +OXYC-517 PO; +PRAV40TA2 PO; +PRED20TA; +PRED20TA PO; +SAVA1TAB5 OR; +SENO8.6T5 PO; +VITA100072 PO
[2018-09-04 14:25] LABS: CHOLESTEROL RISK RATIO 3.923 (<5); FREE T4 0.95 NG/DL (0.76-1.46); THYROID STIMULATING HORMONE 1.49 uIU/ML (0.358-3.740)
[2018-09-04 14:26] LABS: TOTAL 25(OH) VITAMIN D 87.8 NG/ML (30.0-100.0)
[2018-09-04 14:27] LABS: PTH INTACT 32.9 PG/ML (18.5-88.0)
== END ==
LOC: M SFHCPLAZ 13:13
PROVIDERS: ATTEND Family Medicine
DX: D64.9 Anemia, unspecified (principal); E55.9 Vitamin D deficiency, unspecified; E78.5 Hyperlipidemia, unspecified

== ENCOUNTER → 2018-11-02 | Outpatient (CLI) | payer MEDICARE ==
[~2018-11-02] MED LIST changes: +ELIQ5TAB PO; +GASTROGRAFIN SOLUTION 30ML (Q9963) As Ordered ONE; +ISOVUE-370 76% 100ML VIAL (Q9967) As Ordered ONE
--- NOTE | 2018-11-02 15:29 | REP ---
CT of the chest with IV contrast: Comparison is 08/31/2018. There is an enlarging anterior mediastinal now today measuring up to 4.4 cm in diameter. This previously measured 2.3 cm. The nodule again demonstrates enhancement, however, there is a low density center possibly central necrosis. On the comparison study there was a smaller 9 mm lymph node along the superior margin of this enlarging node. The smaller lymph node is effaced by the enlarging node and cannot be visualized today . No precarinal adenopathy is identified on the study today, however, there is a increased radiodensity in the mediastinal fat. The precarinal area without definable margins. This could be a infiltrative neoplastic disease. There is a right upper lobe perihilar mass that is enlarging and is now confluent with the right hilus. There is right hilar adenopathy that is enlarging. There are two spiculated densities in the superior segment of the right lower lobe, unchanged. Impression: There is an enlarging perihilar right upper lobe mass that is now confluent with the right hilus. There are enlarging right hilar nodes. There is increased radiodensity in the precarinal mediastinal fat without definable margins, possibly neoplastic infiltration. There is an enlarging anterior mediastinal node. Electronically Signed by Singh Gonzalez MD 11/02/2018 03:20 P
--- NOTE | 2018-11-02 15:53 | REP ---
CT of the abdomen pelvis with IV and oral contrast dual phase imaging: Initial scanning is performed during the renal cortical phase of enhancement. Scanning is then repeated during the renal excretion phase of enhancement. Comparisons are 08/31/2016 and 06/23/2018. There are multiple hepatic cysts, not significantly changed. The gallbladder, pancreas and spleen are unremarkable and unchanged. There is a small hiatal hernia, unchanged. The adrenals and kidneys are unremarkable and unchanged. The abdominal aorta is unremarkable except calcified atheroma. There is no retroperitoneal adenopathy or mass. The bowel and mesentery are unremarkable. There are multiple ventral hernias as described previously, unchanged. Pelvis: There is a small mass in the pelvic mesentery on the left on image 101 today measuring 7 mm diameter. This measured up to 2.4 cm and 08/31/2018. The low density lesion noted along the left pelvic sidewall on 08/31/2018 (seroma/hematoma/lymphocele / necrotic node) is no longer present. There is no pelvic adenopathy or ascites. There is a hysterectomy. Vaginal cuff and adnexa are unremarkable. The bladder is unremarkable. Impression: The a small mass in the pelvic mesentery on the left continues to decrease in size, today measuring 7 mm. The low density lesion along the left pelvic sidewall identified on 08/31/2018 is no longer present. There are no other interval changes. Electronically Signed by Singh Gonzalez MD 11/02/2018 03:44 P
== END ==
LOC: M RAD 12:33
PROVIDERS: ATTEND Internal Medicine Medical Oncology
DX: C49.4 Malignant neoplasm of connective and soft tissue of abdomen (principal); R59.0 Localized enlarged lymph nodes; R91.8 Other nonspecific abnormal finding of lung field
CPT/HCPCS: 71260; 74177; Q9963; Q9967